=== PATIENT | male | born 2000 | race Caucasian/White ===

== ENCOUNTER 2021-10-08 10:25 | Outpatient (CLI) | payer OTHER, SELFPAY | END 2021-10-08 23:59 | disposition home or self-care (01) | LOC: PSN 10:30 | PROVIDERS: PCP Pediatrics; Referring Provider Nurse Practitioner; Visit Provider Nurse Practitioner | DX: R00.2 Palpitations (principal) | CPT/HCPCS: 93225; 93226 ==

== ENCOUNTER 2021-10-18 12:54 | Outpatient (CLI) | payer OTHER, SELFPAY ==
--- NOTE | 2021-10-18 12:59 | ECHOD_ITS ---
Reason For Study: ABN EKG Procedure This was a 2D Doppler, Color Flow transthoracic echocardiogram. Exam performed in department. Left Ventricle Normal LV size. The estimated ejection fraction is 55-60 %. Normal diastology for age. No regional wall motion abnormalities noted. Right Ventricle Normal RV size. Normal systolic function. Atria Normal left atrium. Normal right atrium. No doppler evidence for ASD. Mitral Valve There is no mitral valve stenosis. No mitral valve insufficiency. Tricuspid Valve There is no tricuspid stenosis. Trivial tricuspid valve insufficiency. Unable to estimate RV systolic pressure due to insufficient tricuspid regurgitant envelope. Aortic Valve Trisinus/trileaflet aortic valve. There is no aortic stenosis. No aortic valve insufficiency. Pulmonic Valve There is no pulmonic valvular stenosis. Trivial pulmonic valve insufficiency. Great Vessels Normal aortic root. Pericardium/Pleural No pericardial effusion. MMode/2D Measurements & Calculations LVIDd: 4.7 cm IVSd: 1.2 cm Ao root diam: 2.5 cm LVIDs: 2.9 cm LVPWd: 0.82 cm RVDd: 3.9 cm FS: 37.8 % LAV(MOD-bp): 51.7 ml LVAd ap4: 27.3 cm2 LVAd ap2: 32.0 cm2 LAV(MOD-bp) Indexed: 28.3 ml/m2 LVLd ap4: 7.8 cm LVLd ap2: 8.7 cm LAV(MOD-sp2): 44.9 ml EDV(MOD-sp4): 78.6 ml EDV(MOD-sp2): 101.3 ml LAV(MOD-sp4): 46.8 ml EDV(sp4-el): 80.7 ml EDV(sp2-el): 100.2 ml LVAs ap4: 16.4 cm2 LVAs ap2: 16.6 cm2 LVLs ap4: 6.8 cm LVLs ap2: 6.5 cm ESV(MOD-sp4): 35.4 ml ESV(MOD-sp2): 36.1 ml ESV(sp4-el): 33.7 ml ESV(sp2-el): 36.1 ml EF(MOD-sp4): 54.9 % EF(MOD-sp2): 64.3 % EF(sp4-el): 58.2 % SV(MOD-sp4): 43.2 ml SV(MOD-sp2): 65.2 ml SV(sp4-el): 47.0 ml LA dimension(2D): 3.2 cm LA A4 area: 18.4 cm2 RA A4 area: 15.9 cm2 Doppler Measurements & Calculations MV E max bo: 80.9 cm/sec Lat Peak E' Bo: 21.2 cm/sec Med Peak E' Bo: 15.6 cm/sec MV A max bo: 46.4 cm/sec E/E' lat: 3.8 E/E' med: 5.2 MV E/A: 1.7 Ao V2 max: 121.2 cm/sec LV V1 max: 105.7 cm/sec PA V2 max: 132.7 cm/sec Ao max P.9 mmHg LV V1 max P.5 mmHg ECHO/Echo Complete Interpretation Summary The estimated ejection fraction is 55-60 %. Ordering Physician: Damaris Lock Referring Physician: Damaris Lock Performed By: Alba Guajardo RCS
== END 2021-10-18 23:59 | disposition home or self-care (01) ==
PROVIDERS: PCP Pediatrics; Referring Provider Nurse Practitioner; Visit Provider Nurse Practitioner
DX: R94.31 Abnormal electrocardiogram [ECG] [EKG] (principal); R00.2 Palpitations
CPT/HCPCS: 93306